=== PATIENT | female | born 1995 | race Caucasian/White ===

== ENCOUNTER 2020-07-03 20:14 | Emergency (ER) | payer SELFPAY ==
--- NOTE | 2020-07-03 21:37 | ER Document Report ---
ED Medical Screen (RME) - General Chief Complaint: Vaginal Bleeding Stated Complaint: VAGINAL BLEEDING - 5 WEEKS PREG Time Seen by Provider: 07/03/20 21:35 Notes: Patient presents 5 weeks G1, P0. Patient reports cramping that started 2 hours prior to arrival. Patient reports vaginal bleeding. Patient denies any urinary symptoms. Patient denies feeling lightheaded. Patient reports a history of borderline diabetes. I have greeted and performed a rapid initial assessment of this patient. A comprehensive ED assessment and evaluation of the patient, analysis of test results and completion of the medical decision making process will be conducted by additional ED providers. Physical Exam - Vital signs Vitals: Temp Pulse Resp BP Pulse Ox 98.8 F 93 16 132/72 H 97 07/03/20 21:12 07/03/20 21:12 07/03/20 21:12 07/03/20 21:12 07/03/20 21:12 - Abdominal Tenderness: Tender - Lower pelvic tenderness Course - Vital Signs Vital signs: Temp Pulse Resp BP Pulse Ox 98.8 F 93 16 132/72 H 97 07/03/20 21:12 07/03/20 21:12 07/03/20 21:12 07/03/20 21:12 07/03/20 21:12
--- NOTE | 2020-07-04 00:53 | RADIOLOGY REPORT (SQ) ---
EXAM DESCRIPTION: US TRANSVAGINAL COMPLETED DATE/TME: 07/03/2020 21:36 CLINICAL HISTORY: 25 years, Female, vag bleeding, cramping COMPARISON: None. TECHNIQUE: LIMITATIONS: None. FINDINGS: There is an intrauterine gestational sac, containing only a yolk sac, corresponding to approximately 5 weeks gestational age. No evidence of subchorionic hemorrhage. There are nabothian cysts in the cervix. The right ovary is unremarkable. Blood flow was demonstrated in the right ovary with Doppler. The left ovary could not be visualized. IMPRESSION: 5 week intrauterine gestational sac. A follow-up ultrasound can be performed in one week, to reevaluate for the presence of a live embryo, if clinically warranted. copyright 2010 [employer]- All Rights Reserved
--- NOTE | 2020-07-04 01:29 | ER Document Report ---
ED GI/ - General Chief Complaint: Abdominal Pain Stated Complaint: VAGINAL BLEEDING - 5 WEEKS PREG Time Seen by Provider: 07/03/20 21:35 Primary Care Provider: [facility] [Provider Group] - Follow up in 3-5 days Notes: Patient is a 25-year-old female that comes emergency department for chief complaint of vaginal bleeding during . Patient is G1, P0 at approximately 5 weeks gestation, she states that she started cramping and bleeding about 2 hours prior to arrival. She denies vaginal bleeding, dysuria, flank pain, lightheadedness, passing out, or any current complaints. She has a history of type 2 diabetes, medicated, denies medical history otherwise. Mother is at bedside. - Related Data Allergies/Adverse Reactions: hydrocodone Allergy (Verified 07/03/20 21:38) Past Medical History - General Information source: Patient - Social History Smoking Status: Never Smoker Frequency of alcohol use: None Drug Abuse: None Lives with: Family Family History: Reviewed & Not Pertinent - Immunizations Immunizations up to date: Yes Hx Diphtheria, Pertussis, Tetanus Vaccination: Yes Review of Systems - Review of Systems Constitutional: No symptoms reported EENT: No symptoms reported Cardiovascular: No symptoms reported Respiratory: No symptoms reported Gastrointestinal: See HPI Genitourinary: See HPI Female Genitourinary: See HPI Musculoskeletal: No symptoms reported Skin: No symptoms reported Hematologic/Lymphatic: No symptoms reported Neurological/Psychological: No symptoms reported Physical Exam - Vital signs Vitals: Temp Pulse Resp BP Pulse Ox 98.8 F 93 16 132/72 H 97 07/03/20 21:12 07/03/20 21:12 07/03/20 21:12 07/03/20 21:12 07/03/20 21:12 - Notes Notes: GENERAL: Alert, interacts well. No acute distress. HEAD: Normocephalic, atraumatic. EYES: Pupils equal, round, and reactive to light. Extraocular movements intact. ENT: Oral mucosa moist, tongue midline. Oropharynx unremarkable. Airway patent. LUNGS: Clear to auscultation bilaterally, no wheezes, rales, or rhonchi. No respiratory distress. Non-tender chest wall. HEART: Regular rate and rhythm. No murmur ABDOMEN: Soft, non-tender. Non-distended. EXTREMITIES: Moves all 4 extremities spontaneously. No edema, normal radial and dorsalis pedis pulses bilaterally. No cyanosis. BACK: no cervical, thoracic, lumbar midline tenderness. No saddle anesthesia, normal distal neurovascular exam. Moves all extremities in full range of motion. NEUROLOGICAL: Alert and oriented x3. Normal speech. Cranial nerves II through XII grossly intact. Strength 5/5 in all extremities. PSYCH: Normal affect, normal mood. SKIN: Warm, dry, normal turgor. No rashes or lesions noted. Course - Re-evaluation Re-evalutation: Vital signs unremarkable, patient alert, well-appearing, has no current complaints. Abdomen soft and benign. CBC unremarkable without concerning anemia, hCG is elevated, RhoGam is not indicated. Ultrasound showing intrauterine which is early, no additional details. I discussed with patient at length, patient will have her work-up repeated, discussed return precautions in detail, and discussed expectations and possibilities. Patient is requesting nausea medication at home. We have also decided to treat/cover her for UTI with white blood cells in the urine and lower abdominal cramping. Patient states understanding and agreement, stable and well-appearing at time of discharge. - Vital Signs Vital signs: Temp Pulse Resp BP Pulse Ox 98.1 F 93 18 138/69 H 100 07/04/20 03:04 07/03/20 21:12 07/04/20 03:04 07/04/20 03:04 07/04/20 03:04 - Laboratory Result Diagrams: 07/04/20 01:40 Laboratory results interpreted by me: 07/03/20 07/04/20 07/04/20 21:00 01:40 01:40 WBC 12.0 H Absolute Neuts (auto) 8.7 H Beta HCG, Quant 87168.00 H Urine Blood LARGE H Ur Leukocyte Esterase TRACE H Discharge - Discharge Clinical Impression: Vaginal bleeding affecting early Condition: Stable Disposition: HOME, SELF-CARE Additional Instructions: Your work-up shows a in the uterus at 5 weeks. No obvious concerning findings are noted otherwise. Recommendation is pelvic rest (avoid any significant physical activity such as running, jumping, lifting, sexual intercourse for 5 to 7 days or until cleared by [employer]). See referral for OBGYN follow-up, monitoring, management. We are also covering you for a possible urinary tract infection, take antibiotics as prescribed to completion. Take Reglan as needed for nausea. Drink plenty of fluids and rest. Return if you worsen including severe worsening pain, heavy bleeding with dizziness or passing out, fever, or any other concerning symptoms. Prescriptions: Cephalexin Monohydrate [Keflex 500 mg Capsule] 500 mg PO BID 5 Days #10 capsule Metoclopramide HCl [Reglan] 5 mg PO ASDIR PRN #30 tablet PRN Reason: Referrals: [facility] [Provider Group] - Follow up in 3-5 days
[2020-07-04 01:48] LABS: APPEARANCE,URINE TURBID; BILIRUBIN,URINE NEGATIVE (NEGATIVE); CALCIUM OXALATE CRYSTALS,URINE FEW /HPF; COLOR,URINE YELLOW; GLUCOSE, URINE NEGATIVE (NEGATIVE); KETONES,URINE NEGATIVE (NEGATIVE); LEUKOCYTE ESTERASE,URINE TRACE (NEGATIVE); NITRITE,URINE NEGATIVE (NEGATIVE); PROTEIN,URINE NEGATIVE (NEGATIVE); URINE SPECIFIC GRAVITY 1.024; UROBILINOGEN,URINE NEGATIVE mg/dL (<2.0)
[2020-07-04 02:07] LABS: ABSOLUTE BASOPHILS # (AUTO) 0.1 10^3/uL (0.0-0.2); ABSOLUTE EOSINOPHILS # (AUTO) 0.1 10^3/uL (0.0-0.6); ABSOLUTE LYMPHOCYTES (AUTO) 2.3 10^3/uL (0.5-4.7); ABSOLUTE MONOCYTES (AUTO) 0.9 10^3/uL (0.1-1.4); ABSOLUTE NEUT (AUTO) 8.7 10^3/uL (1.7-8.2); BASOPHILS % (AUTO) 0.4 % (0-2); EOSINOPHILS % (AUTO) 0.7 % (0-6); HEMOGLOBIN 12.9 g/dL (12.0-15.5); LYMPHOCYTES % (AUTO) 19.4 % (13-45); MEAN CORPUSCULAR HEMOGLOBIN 32.2 pg (27.0-33.4); MEAN CORPUSCULAR VOLUME 95 fl (80-97); MONOCYTES % (AUTO) 7.3 % (3-13); PLATELET COUNT 265 10^3/uL (150-450); RED BLOOD COUNT 4.01 10^6/uL (3.72-5.28); RED CELL DISTRIBUTION WIDTH 13.5 % (11.5-14.0); SEGMENTED NEUTROPHILS % (AUTO) 72.2 % (42-78); TOTAL CELLS COUNTED % (AUTO) 100 %
[2020-07-04 03:05] VITALS: BP 138/69
[2020-07-04 03:31] LABS: CHLAM PCR NOT DETECTED (NOT DETECT)
== END 2020-07-04 03:00 | disposition home or self-care (01) ==
LOC: ER 20:14
DX: O20.9 Hemorrhage in early pregnancy, unspecified (principal); O26.891 Other specified pregnancy related conditions, first trimester; R10.30 Lower abdominal pain, unspecified; O24.111 Pre-existing type 2 diabetes mellitus, in pregnancy, first trimester; E11.9 Type 2 diabetes mellitus without complications; Z79.899 Other long term (current) drug therapy; Z3A.01 Less than 8 weeks gestation of pregnancy
CPT/HCPCS: 36415; 76817; 81001; 84702; 85025; 86900; 86901; 87086; 87491; 87591; 93976; 99284